=== PATIENT | female | born 1955 ===

== ENCOUNTER 2016-12-28 15:10 | Observation (INO) | payer MEDICAID ==
[2016-12-28 15:31] VITALS: BMI 31.8
--- NOTE | 2016-12-28 17:28 | CT ---
PROCEDURE: CT HEAD WITHOUT CONTRAST. HISTORY: dizzy, vomiting COMPARISON: Noncontrast head CT performed 10/07/15 TECHNIQUE: Axial computed tomography images were obtained through the head/brain without intravenous contrast. Radiation dose: Total exam DLP = 725.84 MGy-cm. This CT exam was performed using one or more of the following dose reduction techniques: Automated exposure control, adjustment of the mA and/or kV according to patient size, and/or use of iterative reconstruction technique. FINDINGS: HEMORRHAGE: No intracranial hemorrhage. BRAIN: No mass effect or edema. The do-white matter differentiation appears intact. Please note that MRI with diffusion imaging is more sensitive in the detection of acute ischemic event. VENTRICLES: No hydrocephalus. CALVARIUM: Unremarkable. PARANASAL SINUSES: Unremarkable as visualized. No significant inflammatory changes. MASTOID AIR CELLS: Postsurgical changes, left mastoid air cells. No inflammatory changes are air-fluid levels evident bilaterally. OTHER FINDINGS: None. IMPRESSION: No acute intracranial pathology identified.
--- NOTE | 2016-12-28 17:36 | RAD ---
HISTORY: chest pain/dizzy COMPARISON: None available. TECHNIQUE: Chest, one view. FINDINGS: Examination limited by habitus. LUNGS: Retrocardiac lucency suspected to reflect moderate to large-sized hiatal hernia. Please note that chest x-ray has limited sensitivity for the detection of pulmonary masses. PLEURA: No significant pleural effusion identified. No definite pneumothorax . CARDIOVASCULAR: Heart size appears within normal limits. Atherosclerotic calcifications of the aorta. OSSEOUS STRUCTURES: Degenerative changes of the spine. VISUALIZED UPPER ABDOMEN: Unremarkable. OTHER FINDINGS: None. IMPRESSION: Retrocardiac lucency suspected to reflect moderate to large-sized hiatal hernia.
[2016-12-28 18:05] LABS: BASO # 0.01 K/mm3 (0.0-2.0); BASO % 0.2 % (0.0-3.0); EOS % 0.2 % (1.5-5.0); GRAN # 4.58 (1.4-6.5); HEMOGLOBIN 12.6 gm/dL (12.0-16.0); LYMPH # 1.5 (1.2-3.4); LYMPH % 23.7 % (22.0-35.0); MEAN CORPUSCULAR HEMOGLOBIN 27.8 pg (25.0-35.0); MEAN CORPUSCULAR HGB CONC 32.6 g/dl (31.0-37.0); MEAN PLATELET VOLUME 9.7 fl (7.0-11.0); MONO # 0.3 (0.1-0.6); MONO % 3.9 % (1.0-6.0); PLATELET COUNT 238 10^3/uL (120.0-450.0); RBC 4.54 10^6/uL (3.5-6.1); RED CELL DISTRIBUTION WIDTH 14.8 % (11.5-14.5); WHITE BLOOD COUNT 6.4 10^3/ul (4.5-11.0)
[2016-12-28 18:07] LABS: PH,URINE 8.5 (4.7-8.0); URINE APPEARANCE TURBID (CLEAR); URINE BILIRUBIN NEGATIVE (NEGATIVE); URINE BLOOD NEGATIVE (NEGATIVE); URINE COLOR YELLOW (YELLOW); URINE GLUCOSE (UA) NEGATIVE (NEGATIVE); URINE LEUKOCYTE ESTERASE NEGATIVE Leu/uL (NEGATIVE); URINE NITRATE NEGATIVE (NEGATIVE); URINE PROTEIN 30 mg/dL (<30 mg/dL); URINE UROBILINOGEN 0.2 E.U./dL (<1 E.U./dL)
[2016-12-28 18:11] LABS: ALB/GLOB RATIO 1.2 (1.1-1.8); ALBUMIN 4.1 g/dL (3.0-4.8); ALT/SGPT 39 U/L (7-56); AST/SGOT 26 U/L (15-39); BLOOD UREA NITROGEN 17 mg/dL (7-21); CALCIUM 9.6 mg/dL (8.4-10.5); GFR AFRICAN-AMERICAN > 60; GFR NON-AFRICAN AMERICAN > 60; MAGNESIUM 2.1 mg/dL (1.7-2.2)
[2016-12-28 18:12] LABS: INR 0.99 (0.93-1.08); PROTHROMBIN TIME 10.7 Seconds (9.9-11.8)
[2016-12-28 18:16] LABS: URINE AMORPHOUS SEDIMENT MANY; URINE RBC NEGATIVE /hpf (0-2); URINE WBC NEGATIVE /hpf (0-6)
[2016-12-28 18:31] LABS: TROPONIN I < 0.01 ng/mL
--- NOTE | 2016-12-28 20:19 | CARD ---
APPROVED REPORT EKG Measurement Heart [id number] <Conclusion> Sinus rhythm with 1st degree AV block Otherwise normal ECG
--- NOTE | 2016-12-28 21:14 | ED PDOC ---
Arrival/HPI - General Historian: Patient - History of Present Illness Time/Duration: Prior to Arrival Symptom Course: Unchanged Quality: Other ("pain") Severity Level: 6 <Desiree Lange - Last Filed: 12/28/16 21:10> <Ace Sams - Last Filed: 12/28/16 21:33> - General Chief Complaint: Dizziness/Lightheaded Time Seen by Provider: 12/28/16 16:30 - History of Present Illness Narrative History of Present Illness (Text): 12/28/16 21:10 Patient c/o mid chest pain, dizziness and vomiting started this afternoon. ( Desiree Lange) Associated Symptoms (Text): 12/28/16 21:11 dizziness and vomiting (Desiree Lange) Past Medical History - Provider Review Nursing Documentation Reviewed: Yes - Cardiac Hx Hypertension: Yes - Pulmonary Hx Asthma: Yes - Neurological Hx Neurological Disorder: No - HEENT Hx HEENT Disorder: No - Renal Hx Renal Disorder: No - Endocrine/Metabolic Hx Hypothyroidism: Yes - Hematological/Oncological Hx Blood Disorders: No - Integumentary Hx Dermatological Disorder: No - Musculoskeletal/Rheumatological Hx Musculoskeletal Disorders: No - Gastrointestinal Hx Gastrointestinal Disorders: No - Genitourinary/Gynecological Hx Genitourinary Disorders: No - Psychiatric Hx Psychophysiologic Disorder: No Hx Substance Use: No - Surgical History Hx Tubal Ligation: Yes Other/Comment: Right ear - Anesthesia Hx Anesthesia: Yes <Desiree Lange - Last Filed: 12/28/16 21:10> Family/Social History - Physician Review Nursing Documentation Reviewed: Yes Family/Social History: Unknown Family HX Smoking Status: Never Smoked Hx Alcohol Use: No Hx Substance Use: No <Desiree Lange - Last Filed: 12/28/16 21:10> Allergies/Home Meds <Desiree Lange - Last Filed: 12/28/16 21:10> <Ace Sams - Last Filed: 12/28/16 21:33> Allergies/Adverse Reactions: Allergies No Known Allergies Allergy (Verified 05/01/16 15:18) Home Medications: Home Meds Medication Instructions Recorded Confirmed Atenolol [Tenormin] 50 mg PO BID 10/07/15 10/07/15 Hydrochlorothiazide [HCTZ] 25 mg PO BID 10/07/15 10/07/15 methIMAzole [Tapazole] 5 mg PO MWF 10/07/15 10/07/15 Review of Systems - Physician Review All systems were reviewed & negative as marked: Yes - Review of Systems Constitutional: Fatigue Cardiovascular: Chest Pain Gastrointestinal: Nausea, Vomiting Neurological: Dizziness <Desiree Lange - Last Filed: 12/28/16 21:10> Physical Exam Vital Signs Reviewed: Yes Temperature: Afebrile Blood Pressure: Hypertensive Pulse: Regular Respiratory Rate: Normal Appearance: Positive for: Uncomfortable, Other (vomiting) Mental Status: Positive for: Alert and Oriented X 3 - Systems Exam Head: Present: Atraumatic, Normocephalic Pupils: Present: PERRL Extroacular Muscles: Present: EOMI, Other (horisontal nystagmus) Respiratory/Chest: Present: Clear to Auscultation, Good Air Exchange. No: Respiratory Distress, Wheezes Cardiovascular: Present: Regular Rate and Rhythm Abdomen: Present: Normal Bowel Sounds. No: Tenderness, Distention, Peritoneal Signs Back: No: Midline Tenderness, Paraspinal Tenderness Upper Extremity: Present: Normal Inspection, Normal ROM Lower Extremity: Present: Normal Inspection, NORMAL PULSES, Normal ROM. No: Edema Neurological: Present: GCS=15, CN II-XII Intact, Speech Normal, Motor Func Grossly Intact, Normal Sensory Function Skin: Present: Warm, Normal Color. No: Rashes Psychiatric: Present: Alert, Oriented x 3 <Desiree Lange - Last Filed: 12/28/16 21:10> Medical Decision Making - RAD Interpretation Manager Domestic: ED Physician <Desiree Lange - Last Filed: 12/28/16 21:10> <Ace Smas - Last Filed: 12/28/16 21:33> ED Course and Treatment: 12/28/16 21:16 Patient was treated with Meclizine with improvement. CT head negative. Case was d/w who accepted her to telemetry for observation. (Desiree Lange) - Lab Interpretations Lab Results: 12/28/16 17:35 12/28/16 17:35 Lab Results 12/28/16 17:55: Urine Color Yellow, Urine Appearance Turbid, Urine pH 8.5, Ur Specific [place] 1.015, Urine Protein 30 H, Urine Glucose (UA) Negative, Urine Ketones Negative, Urine Blood Negative, Urine Nitrate Negative, Urine Bilirubin Negative, Urine Urobilinogen 0.2, Ur Leukocyte Esterase Negative, Urine RBC Negative, Urine WBC Negative, Ur Epithelial Cells 4 - 5, Amorphous Sediment Many 12/28/16 17:35: Sodium 141, Potassium 4.5, Chloride 100, Carbon Dioxide 30, Anion Gap 16, BUN 17, Creatinine 0.5, Est GFR ( Amer) > 60, Est GFR (Non- Af Amer) > 60, Random Glucose 95, Calcium 9.6, Magnesium 2.1, Total Bilirubin 0.7, AST 26, ALT 39, Alkaline Phosphatase 87, Lactate Dehydrogenase 505, Total Creatine Kinase 53, Troponin I < 0.01, Total Protein 7.6, Albumin 4.1, Globulin 3.5, Albumin/Globulin Ratio 1.2 12/28/16 17:35: PT 10.7, INR 0.99, APTT 27.0 12/28/16 17:35: WBC 6.4, RBC 4.54, Hgb 12.6, Hct 38.6, MCV 85.0, MCH 27.8, MCHC 32.6, RDW 14.8 H, Plt Count 238, MPV 9.7, Gran % 72.0 H, Lymph % (Auto) 23.7, [place] % (Auto) 3.9, Eos % (Auto) 0.2 L, Baso % (Auto) 0.2, Gran # 4.58, Lymph # 1.5, [place] # 0.3, Eos # 0.0, Baso # 0.01 - RAD Interpretation Narrative RAD Interpretations (Text): 12/28/16 21:[address] and CXR are without acute changes. 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 JACI has examined the patient and agrees with the treatment plan. <Ace Sams - Last Filed: 12/28/16 21:33> Disposition/Present on Arrival - Present on Arrival Any Indicators Present on Arrival: No History of DVT/PE: No History of Uncontrolled Diabetes: No Urinary Catheter: No History of Decub. Ulcer: No History Surgical Site Infection Following: None - Disposition Have Diagnosis and Disposition been Completed?: Yes Disposition Time: 21:18 <Desiree Lange - Last Filed: 12/28/16 21:10> <Ace Sams - Last Filed: 12/28/16 21:33> - Disposition Diagnosis: Dizziness, Vomiting, Chest pain Disposition: HOSPITALIZED Condition: GUARDED Discharge Instructions (ExitCare): Chest Pain (ED) Referrals: Niya Howard DO [Primary Care Provider] - Follow up with primary Forms: [employer] (Swedish)
--- NOTE | 2016-12-28 22:09 | CP.PCM.HP ---
<JETHRO RAIN - Last Filed: 12/28/16 21:51> History of Present Illness - History of Present Illness History of Present Illness: 61 yo F with PMHx of HTN, hyperthyroidism, and asthma presents with cc of CP and dizziness. Pt states that her symptoms began around 2 pm today while she was cleaning. Pt states that CP is left-sided and did not radiate and is a 4/ 10. At this point the patient tried to rest when she got nauseous and vomited once. After vomiting the pt reported epigastric pain. Pt states that she has had CP and dizziness several in the past few months, but not severe enough to seek medical advice. Pt states that she is hard of hearing in her left ear and is currently in discussion with ENT for possible ear surgery. Pt denied any aggravating or alleviating factors. In the ED, pt vomited once more, at that point she received antivert, which stopped her dizziness. Pt states that CP has also subsided while in the ED. Pt denied SOB, LOC, weakness, fatigue, chills, fever, diarrhea, constipation, or dysuria. PMHx: HTN, asthma, hyperthyroidism (PMD stopped meds ~9 months ago) Surg: Unknown ear surgery, breast biopsy (-) FHx: Cervical CA, [place], HTN All: NKDA SH: Denied EtOH, tobacco, or illicit drug use Meds: Reviewed and as per chart Present on Admission - Present on Admission Any Indicators Present on Admission: No Review of Systems - Review of Systems All systems: reviewed and no additional remarkable complaints except (12 point ROS negative other than what is stated in HPI) Past Patient History - Past Social History Smoking Status: Never Smoked - CARDIAC Hx Hypertension: Yes - PULMONARY Hx Asthma: Yes - NEUROLOGICAL Hx Neurological Disorder: No - HEENT Hx HEENT Problems: No - RENAL Hx Chronic Kidney Disease: No - ENDOCRINE/METABOLIC Hx Hypothyroidism: Yes - HEMATOLOGICAL/ONCOLOGICAL Hx Blood Disorders: No - INTEGUMENTARY Hx Dermatological Problems: No - MUSCULOSKELETAL/RHEUMATOLOGICAL Hx Musculoskeletal Disorders: No - GASTROINTESTINAL Hx Gastrointestinal Disorders: No - GENITOURINARY/GYNECOLOGICAL Hx Genitourinary Disorders: No - PSYCHIATRIC Hx Psychophysiologic Disorder: No Hx Substance Use: No - SURGICAL HISTORY Hx Tubal Ligation: Yes Other/Comment: Right ear - ANESTHESIA Hx Anesthesia: Yes Meds Allergies/Adverse Reactions: Allergies Allergy/AdvReac Type Severity Reaction Status Date / Time No Known Allergies Allergy Verified 05/01/16 15:18 Physical Exam - Constitutional Appears: No Acute Distress - Head Exam Head Exam: ATRAUMATIC, NORMOCEPHALIC - Eye Exam Eye Exam: EOMI, Nystagmus (Positive Nery-Hallpike to left), PERRL - ENT Exam ENT Exam: Mucous Membranes Moist - Neck Exam Neck exam: Positive for: Full Rom. Negative for: Lymphadenopathy, Tenderness, Thyromegaly - Respiratory Exam Respiratory Exam: Clear to Auscultation Bilateral. absent: Rales, Rhonchi, Wheezes - Cardiovascular Exam Cardiovascular Exam: RRR, +S1, +S2. absent: Diastolic murmur, Gallop, Rubs, Systolic Murmur - GI/Abdominal Exam GI & Abdominal Exam: Soft, Tenderness (epigastric). absent: Distended, Guarding , Rebound - Extremities Exam Extremities exam: Positive for: full ROM, normal inspection. Negative for: joint swelling, pedal edema, tenderness - Neurological Exam Neurological exam: Alert, CN II-XII Intact, Oriented x3, Reflexes Normal - Psychiatric Exam Psychiatric exam: Normal Affect, Normal Mood - Skin Skin Exam: Dry, Intact, Normal Color, Warm Results - Vital Signs Recent Vital Signs: Last Vital Signs Temp 97.6 F 12/28/16 15:28 Pulse 56 L 12/28/16 17:30 Resp 16 12/28/16 17:30 BP 142/78 12/28/16 17:30 Pulse Ox 99 12/28/16 17:30 - Labs Result Diagrams: 12/28/16 17:35 12/28/16 17:35 Assessment & Plan - Assessment and Plan (Free Text) Assessment: 61 yo F with PMHx of HTN, hyperthyroidism, and asthma will be admitted for evaluation and treatment for chest pain r/o ACS. 1. Chest pain r/o ACS - Cardiology consulted - Troponin x1 negative, will trend - EKG shows 1st degree AV block, will trend - CXR shows hiatal hernia, no active disease otherwise - F/u Thyroid studies 2. Vertigo - Head CT showed no active disease process - Meclizine prn for dizziness - Neurocheck q6h - Likely BPPV, pt currently seeing ENT for possible surgery 3. HTN - HCTZ 25 mg daily - Hold Atenolol 50 mg due to bradycardia 4. Asthma - Duoneb q2h prn 5. GERD - Protonix - CXR shows hiatal hernia 6. GI/DVT PPx - Protonix - SCDs Pt seen and discussed in detail with Dr. Aguilar. <Florencia Aguilar - Last Filed: 12/29/16 02:25> Results - Vital Signs Recent Vital Signs: Last Vital Signs Temp 98.9 F 12/28/16 23:57 Pulse 69 12/28/16 23:57 Resp 20 12/28/16 23:57 BP 120/63 12/28/16 23:57 Pulse Ox 98 12/28/16 23:57 - Labs Result Diagrams: 12/28/16 17:35 12/28/16 17:35 Labs: Laboratory Results - last 24 hr 12/29/16 00:35 Troponin I < 0.01 Attending/Attestation - Attestation I have personally seen and examined this patient.: Yes I have fully participated in the care of the patient.: Yes I have reviewed all pertinent clinical information: Yes Notes (Text): 12/29/16 02:25 Patient was seen when she was in bed # 1 in the ER. Agree with history, physical examination, assessment and plan.
[2016-12-28] MEDS ORDERED: Albuterol-Ipratrop 3 mg / 0.5 (3 ml) UD IH PRN (22:13)
[2016-12-29 06:18] VITALS: O2SAT 99
[2016-12-29 06:35] LABS: HEMOGLOBIN 12.4 gm/dL (12.0-16.0); MEAN CELL VOLUME 84.7 fL (80.0-105.0); MEAN CORPUSCULAR HGB CONC 33.1 g/dl (31.0-37.0); MEAN PLATELET VOLUME 9.3 fl (7.0-11.0); RBC 4.43 10^6/uL (3.5-6.1); RED CELL DISTRIBUTION WIDTH 14.9 % (11.5-14.5); WHITE BLOOD COUNT 5.9 10^3/ul (4.5-11.0)
[2016-12-29 07:11] LABS: ALBUMIN 3.7 g/dL (3.0-4.8); ALT/SGPT 30 U/L (7-56); AST/SGOT 32 U/L (15-39); BLOOD UREA NITROGEN 17 mg/dL (7-21); CALCIUM 9.3 mg/dL (8.4-10.5); GFR AFRICAN-AMERICAN > 60; GFR NON-AFRICAN AMERICAN > 60; MAGNESIUM 2.2 mg/dL (1.7-2.2)
[2016-12-29 07:29] LABS: FREE T4 0.95 ng/dL (0.78-2.19)
[2016-12-29 07:41] LABS: TROPONIN I < 0.01 ng/mL
[2016-12-29 07:43] LABS: T3 0.98 ng/mL (0.97-1.69)
--- NOTE | 2016-12-29 10:26 | CON ---
DATE: 12/29/2016 INDICATIONS: Chest pain. HISTORY OF PRESENT ILLNESS: This is a 61-year-old woman admitted to the emergency room when she complained of predominantly dizziness and vomiting. She has ear problems, which is currently undergoing evaluation. 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 She became dizzy and vomited at home. When the dizziness persisted, she came to the emergency room, where she vomited again. She also complained of chest pain on the left side. It was not severe. It was not associated with shortness of breath with diaphoresis and it was not pleuritic. It resolved after a stay in the emergency room. It has not recurred. There is no orthopnea, PND, syncope, palpitations, edema, claudication, fever, chills, cough, sputum production, hemoptysis, abdominal pain, diarrhea, constipation, or melena. 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 There is no history of rheumatic fever, myocardial infarction, angina, congestive heart failure, arrhythmia, stroke, TIA, diabetes, or gout. MEDICATIONS: At the time of admission included atenolol, Augmentin, Fioricet, hydrochlorothiazide, . ALLERGIES: There are no known medication allergies reported. SOCIAL HISTORY: She lives at home. She does not smoke cigarettes. She does not drink alcohol significantly. FAMILY HISTORY: Notable for heart disease and hypertension as well as cancer. REVIEW OF SYSTEMS: A 10-point review of systems is limited because of language barrier but is otherwise unremarkable as per the chart. PHYSICAL EXAMINATION: GENERAL: She is a well-developed woman, lying in bed, in no acute distress on telemetry. VITAL SIGNS: Notable for sinus rhythm at 65 beats per minute. She is afebrile. Blood pressure 109/67, respirations 16 to 20, and O2 saturation 98% to 99% on room air. HEENT: Reveals no neck vein distention, thyromegaly, carotid bruits. Mucous membranes moist. Conjunctivae pink. NECK: Supple. LUNGS: Lung love clear throughout. HEART: Revealed normal first and second heart sounds. I did not appreciate murmur, gallop, rub, or click. ABDOMEN: Soft. Bowel sounds are present. No mass, organomegaly, tenderness, rebound, or guarding. No CVA tenderness. No palpable abdominal aortic aneurysm. EXTREMITIES: Revealed no cyanosis, clubbing or edema. NEUROLOGIC: She was awake, alert, and oriented. PSYCHIATRIC: Normal as to mood and affect. SKIN: Warm and dry. No rash or cellulitis. LABORATORY AND IMAGING: A chest x-ray revealed possible hiatal hernia, otherwise unremarkable. EKG reveals regular sinus rhythm with first degree AV block and mild nonspecific ST wave changes. A CT scan of the head reveals no acute intracranial pathology identified. CBC is unremarkable. PT, INR, PTT unremarkable. Electrolytes, BUN, creatinine, magnesium, liver function tests, 3 troponins all are unremarkable. Thyroid study is notable for a low TSH and normal T4 and total T3. Urinalysis is unremarkable. IMPRESSION: The patient is a 61-year-old woman with ear problems, dizziness, vomiting, and incidentally left-sided chest pain, but no evidence of myocardial infarction by serial troponins or EKG. The chest pain does not have an ischemic quality. She does have risk factors for coronary artery disease including a family history and hypertension. At this time, I agree with current plans. She is on telemetry. She is getting meclizine, which has improved her symptoms. Hydrochlorothiazide and Protonix are being continued. I will repeat her EKG this morning. She can be out of bed. I will get an echocardiogram. She can be considered for a nuclear testing on an outpatient basis. She should have ENT followup. We can check her orthostatic signs. I will follow along with you and I will make additional recommendation based on her clinical course. Alvaro Fontenot MD [facility]
--- NOTE | 2016-12-29 11:02 | CARD ---
APPROVED REPORT EKG Measurement Heart [id number] <Conclusion> Sinus bradycardia with 1st degree AV block Otherwise normal ECG
[2016-12-29 13:44] VITALS: RESP 18
[2016-12-29 17:13] VITALS: BP 149/97; PULSE 62; TEMP 98.1
--- NOTE | 2016-12-30 11:50 | CARD ---
APPROVED REPORT EXAM: Two-dimensional and M-mode echocardiogram with Doppler and color Doppler. Other Information Quality : AverageRhythm : INDICATION Dizziness and Vertigo Chest Pain 2D DIMENSIONS Left Atrium (2D)4.2 (1.6-4.0cm)IVSd1.1 (0.7-1.1cm) LVDd4.6 (3.9-5.9cm)PWd1.0 (0.7-1.1cm) LVDs2.9 (2.5-4.0cm)FS (%) 36.0 % LVEF (%)65.0 (>50%) M-Mode DIMENSIONS Aortic Root3.30 (2.2-3.7cm)Aortic Cusp Exc.1.50 (1.5-2.0cm) Aortic Valve AoV Peak Tdpaedoa434.0cm/s Mitral Valve MV E Zzpsioaw48.3cm/sMV A Zfzsbmhh46.8cm/sE/A ratio1.0 TDI Lateral E' Peak V12.80cm/sMedial E' Peak V6.92cm/sE/Lateral E'7.2 E/Medial E'13.3 Pulmonary Valve PV Peak Jfkynhzs69.8cm/sPV Peak Grad.3mmHg Tricuspid Valve TR Peak Kqdtloas502ta/sRAP [id number] Peak Gr.27mmHg [id number] LEFT VENTRICLE The left ventricle is normal size. There is normal left ventricular wall thickness. The left ventricular function is normal. The left ventricular ejection fraction is within the normal range. There is normal LV segmental wall motion. RIGHT VENTRICLE The right ventricle is normal size. ATRIA The left atrium is mildly dilated. The right atrium size is normal. The interatrial septum is intact with no evidence for an atrial septal defect. AORTIC VALVE The aortic valve is normal in structure. MITRAL VALVE The mitral valve is normal in structure. Mitral regurgitation is mild. TRICUSPID VALVE The tricuspid valve is normal in structure. There is mild tricuspid regurgitation. PULMONIC VALVE The pulmonic valve is not well visualized. GREAT VESSELS The aortic root is normal in size. PERICARDIAL EFFUSION There is no pericardial effusion. <Conclusion> The left ventricle is normal size. There is normal left ventricular wall thickness. The left ventricular function is normal. Mitral regurgitation is mild. There is mild tricuspid regurgitation.
== END 2016-12-29 18:46 | disposition home or self-care (01) ==
LOC: ED 15:10 → ERH 21:19 → 2RNO 23:04
PROVIDERS: ADMIT Internal Medicine; ATTEND Internal Medicine
DX: R07.89 Other chest pain (principal); I10 Essential (primary) hypertension; R42 Dizziness and giddiness; J45.909 Unspecified asthma, uncomplicated; K21.9 Gastro-esophageal reflux disease without esophagitis; K44.9 Diaphragmatic hernia without obstruction or gangrene; E05.90 Thyrotoxicosis, unspecified without thyrotoxic crisis or storm; H91.90 Unspecified hearing loss, unspecified ear; E73.9 Lactose intolerance, unspecified; M85.80 Other specified disorders of bone density and structure, unspecified site; Z82.49 Family history of ischemic heart disease and other diseases of the circulatory system
CPT/HCPCS: 36415; 70450; 71010; 80053; 81001; 82550; 83615; 83735; 84100; 84439; 84443; 84480; 84484; 85025; 85027; 85610; 85730; 93005; 93306; 99285; C9113; G0378